=== PATIENT | female | born 1970 | race Two or more races ===

== ENCOUNTER 2021-04-18 04:04 | Emergency (ER) | payer OTHER ==
[~2021-04-18] VITALS: Ht 160 cm; Wt 90.9 kg
[2021-04-18] MEDS ORDERED: KETOROLAC TROMETHAMINE 30 MG/ML VIAL IM ONE (05:15)
[2021-04-18] MEDS ORDERED: CYCLOBENZAPRINE HCL 10 MG TABLET PO ONE (05:15)
[2021-04-18 06:00] VITALS: BP 140/76
== END 2021-04-18 06:47 | disposition home or self-care (01) ==
LOC: EMS 04:05
DX: M54.42 Lumbago with sciatica, left side (principal); F17.210 Nicotine dependence, cigarettes, uncomplicated
CPT/HCPCS: 96372; 99283; J1885